=== PATIENT | female | born 1950 | race Caucasian/White ===

== ENCOUNTER 2017-08-29 19:24 | Emergency (ER) | payer SELFPAY ==
[~2017-08-29] VITALS: Ht 152.4 cm; Wt 61.2 kg
[2017-08-29 19:29] VITALS: Ht 152.4 cm; Wt 61.2 kg
== END 2017-08-29 20:50 | disposition left against medical advice (07) ==
LOC: E/R 19:24
DX: Z53.21 Procedure and treatment not carried out due to patient leaving prior to being seen by health care provider (principal)

== ENCOUNTER 2019-06-08 12:08 | Emergency (ER) | payer OTHER ==
[~2019-06-08] VITALS: Ht 149.9 cm; Wt 64.0 kg
[~2019-06-08 12:08] MED LIST: ALBU8.5H8 INH; PRED20TA PO
[2019-06-08 12:44] VITALS: BP 130/78; PULSE 78; RESP 20; Ht 149.9 cm; Wt 64.0 kg
[2019-06-08] MEDS ORDERED: ALBUTEROL 0.083% (NEB) 2.5 MG/3 ML AMP HHN STA (13:23)
[2019-06-08] MEDS ORDERED: DEXAMETHASONE 10 MG/ML 1 ML INJ IM ONE (13:30)
[2019-06-08] MEDS ORDERED: IPRATROPIUM (NEB) 0.5 MG/2.5 ML AMP HHN ONE (13:30)
== END 2019-06-08 14:28 | disposition home or self-care (01) ==
LOC: FTE 12:08
DX: J45.901 Unspecified asthma with (acute) exacerbation (principal)
CPT/HCPCS: 71045; 94664; 96372; J1100; Z7502; Z7610